=== PATIENT | male | born 1935 | race Caucasian/White ===

== ENCOUNTER 2021-06-18 12:55 | Emergency (ER) | payer MEDICARE ==
[~2021-06-18] VITALS: Ht 175.3 cm; Wt 89.2 kg
[~2021-06-18 12:55] MED LIST: COU4T PO; DOXA8TAB79 PO; FEBU80TA PO; LISI10TA27 PO; LOSA50TA3 PO; OMEG10007 PO; POTA10CA44 PO; TORS100T15 PO
[2021-06-18 13:09] VITALS: BP 140/52
[2021-06-18] MEDS ORDERED: SULF1TAB49 PO (14:54)
[2021-06-18] MEDS ORDERED: bacitracin 15gm ointment TP ONE (14:55)
[2021-06-18] MEDS ORDERED: ondansetron 4mg rapidly disintigrating tab PO ONE (14:55)
[2021-06-18] MEDS ORDERED: TETanus/Pertussis (Acell)/Diphther VAC/PF (Tdap-Adult) 0.5ml syringe IMVAC ONE (14:55)
[2021-06-18] MEDS ORDERED: sulfamethoxazole/trimethoprim DS (800/160mg) tablet PO ONE (14:55)
== END 2021-06-18 15:31 | disposition home or self-care (01) ==
LOC: ER 12:55
DX: S80.211A Abrasion, right knee, initial encounter (principal); L03.115 Cellulitis of right lower limb; I48.91 Unspecified atrial fibrillation; I50.9 Heart failure, unspecified; Z95.0 Presence of cardiac pacemaker; Z88.8 Allergy status to other drugs, medicaments and biological substances; Z88.1 Allergy status to other antibiotic agents; Z79.899 Other long term (current) drug therapy; Z79.01 Long term (current) use of anticoagulants; W18.09XA Striking against other object with subsequent fall, initial encounter; Z91.81 History of falling; Y93.01 Activity, walking, marching and hiking; Y92.89 Other specified places as the place of occurrence of the external cause; Y99.8 Other external cause status
CPT/HCPCS: 90471; 90715; 93971; 99284

== ENCOUNTER 2022-10-08 07:50 | Day surgery (SDC) | payer MEDICARE, OTHER ==
[2022-10-08] VITALS (7 sets, daily range): BP systolic 117–147; BP diastolic 52–70
[~2022-10-08] VITALS: Ht 175.3 cm; Wt 85.5 kg
[~2022-10-08 07:50] MED LIST changes: -POTA10CA44 PO; +POTA10CA45 PO
[2022-10-08] MEDS ORDERED: normal saline 1000ml 1,000 ML IV PRN (08:20)
[2022-10-08] MEDS ORDERED: VANCOMYCIN 1,500MG in NS 300 ML IVPB IV ONE (08:20)
[2022-10-08] MEDS ORDERED: LOSA100T57 PO (08:24)
[2022-10-08] MEDS ORDERED: LEVO75TA7 PO (08:24)
[2022-10-08] MEDS ORDERED: POTA-207 PO (08:24)
[2022-10-08] MEDS ORDERED: WARF-55 PO (08:24)
[2022-10-08] MEDS ORDERED: AMLO5TAB16 PO (08:24)
[2022-10-08] MEDS ORDERED: CYAN25003 SL (08:27)
[2022-10-08] MEDS ORDERED: CHOL50004 PO (08:27)
[2022-10-08] MEDS ORDERED: [UNRECOGNIZED DRUG - CODE] (08:28)
[2022-10-08 09:11] LABS: BASOPHILS % (AUTO) 1.1 % (0-1); EOSINOPHILS # (AUTO) 0.1 X10'3 (0-0.9); EOSINOPHILS % (AUTO) 2.3 % (0-6); HEMATOCRIT 38.2 % (42.0-52.0); HEMOGLOBIN 12.8 g/dl (14.0-17.9); LYMPHOCYTES # (AUTO) 1.1 X10'3 (1.1-4.8); LYMPHOCYTES % (AUTO) 33.6 % (21-51); MEAN CORPUSCULAR HEMOGLOBIN 31.7 PG (27.0-31.0); MEAN CORPUSCULAR HGB CONC 33.5 g/dL (33.0-36.5); MEAN CORPUSCULAR VOLUME 94.8 FL (78-98); MEAN PLATELET VOLUME 8.3 FL (7.4-10.4); MONOCYTES # (AUTO) 0.3 X10'3 (0-0.9); MONOCYTES % (AUTO) 8.1 % (2-12); NEUTROPHILS # (AUTO) 1.8 X10'3 (1.8-7.7); NEUTROPHILS % (AUTO) 54.9 % (42-75); PLATELET COUNT 87 X10'3 (140-440); RED BLOOD COUNT 4.03 X10'6 (4.70-6.10); RED CELL DISTRIBUTION WIDTH 14.7 % (11.5-14.5); WHITE BLOOD COUNT 3.4 X10'3 (4.5-11.0)
[2022-10-08] MEDS ORDERED: midazolam 1 mg/ML 2ml injection ONE ×3 (09:11→11:41)
[2022-10-08] MEDS ORDERED: vancomycin 1,000mg inj ONE (09:11)
[2022-10-08] MEDS ORDERED: LIDOCAINE 2%/EPI 1:100,000 inj. Multi-dose 20 ML VIAL ONE (09:11)
[2022-10-08] MEDS ORDERED: fentaNYL/PF 50MCG/1 ML 2ML syringe ONE (09:11)
[2022-10-08] MEDS ORDERED: clindamycin-Cleocin 900mg/D5W 50 ML IV ONE (09:25)
[2022-10-08 09:30] LABS: ALBUMIN 3.8 G/DL (3.4-5.0); ANION GAP 9 (8-16); BLOOD UREA NITROGEN 34 MG/DL (7-18); CALCIUM 8.9 MG/DL (8.5-10.1); CHLORIDE 103 MMOL/L (99-107); CREATININE 1.26 MG/DL (0.60-1.10); GLUCOSE 109 MG/DL (70-104); MAGNESIUM 2.2 MG/DL (1.5-2.4); POTASSIUM 3.6 MMOL/L (3.5-5.1); SODIUM 141 MMOL/L (135-145); TOTAL CARBON DIOXIDE 29.1 MMOL/L (24-32); eGFR 54 ML/MIN
[2022-10-08] MEDS ORDERED: normal saline 1000ml 1,000 ML IV SCH (12:30)
== END 2022-10-08 14:05 | disposition home or self-care (01) ==
LOC: SSTAY O 07:50
PROVIDERS: ATTEND Internal Medicine Cardiovascular Disease
DX: Z45.010 Encounter for checking and testing of cardiac pacemaker pulse generator [battery] (principal); I48.20 Chronic atrial fibrillation, unspecified; I27.20 Pulmonary hypertension, unspecified; I10 Essential (primary) hypertension; D64.9 Anemia, unspecified; D69.6 Thrombocytopenia, unspecified; I34.0 Nonrheumatic mitral (valve) insufficiency; E11.9 Type 2 diabetes mellitus without complications; E78.5 Hyperlipidemia, unspecified; M10.9 Gout, unspecified; Z79.01 Long term (current) use of anticoagulants; Z79.899 Other long term (current) drug therapy; Z87.891 Personal history of nicotine dependence; Z88.8 Allergy status to other drugs, medicaments and biological substances
CPT/HCPCS: 33227; 36415; 80048; 83735; 85025; 85610; 93005; 99152; C1786; J2250; J3010; J3370; J7030; J7040; 99153

== ENCOUNTER 2024-10-21 07:15 | Day surgery (SDC) | payer MEDICARE ==
[~2024-10-21] VITALS: Ht 175.3 cm; Wt 78.6 kg
[~2024-10-21 07:15] MED LIST changes: -COU4T PO; +LEVO75TA7 PO; -LISI10TA27 PO; +LOSA100T58 PO; -LOSA50TA3 PO; +METO-395 PO; -OMEG10007 PO; -POTA10CA45 PO
[2024-10-21 07:51] VITALS: BP 140/49; PULSE 60; RESP 18
[2024-10-21] MEDS ORDERED: fentaNYL/PF 50MCG/1 ML 2ML syringe ONE (08:18)
[2024-10-21] MEDS ORDERED: MIDAZolam 1 MG/ML 5ML VIAL ONE (08:18)
[2024-10-21] MEDS ORDERED: propofol inj 20 ML IV ONE (08:19)
[2024-10-21] MEDS ORDERED: LIDOcaine 1%/PF 5ML 10 MG/ML VIAL ONE (08:19)
[2024-10-21] MEDS ORDERED: simethicone 40mg/0.6ml oral drops 30ml ONE (08:40)
[2024-10-21 09:50] VITALS: BP 112/47; PULSE 54; RESP 8; O2SAT 100
[2024-10-21 09:55] VITALS: BP 103/50; PULSE 54; RESP 11; O2SAT 100
[2024-10-21 10:00] VITALS: BP 111/65; PULSE 51; RESP 11; O2SAT 100
[2024-10-21 10:10] VITALS: BP 113/50; PULSE 53; RESP 15; O2SAT 100
== END 2024-10-21 09:50 | disposition home or self-care (01) ==
LOC: GI LAB 07:15
PROVIDERS: ATTEND Internal Medicine Gastroenterology
DX: R19.5 Other fecal abnormalities (principal); D12.5 Benign neoplasm of sigmoid colon; K57.30 Diverticulosis of large intestine without perforation or abscess without bleeding; K63.5 Polyp of colon; K21.00 Gastro-esophageal reflux disease with esophagitis, without bleeding; K29.71 Gastritis, unspecified, with bleeding; I25.10 Atherosclerotic heart disease of native coronary artery without angina pectoris; I50.9 Heart failure, unspecified; Z95.0 Presence of cardiac pacemaker
CPT/HCPCS: 43239; 45385; A4620; C1889; J2250; J2704; J3010; J3490; J7030; Z7512; 43251; 45380; 88305